=== PATIENT | female | born 1985 | race Caucasian/White ===

== ENCOUNTER 2018-03-26 06:09 | Day surgery (SDC) | payer OTHER ==
[2018-03-26] MEDS ORDERED: ENOXAPARIN SODIUM 40 MG/0.4 ML DISP.SYRIN SQ ONE (06:39)
[2018-03-26] MEDS ORDERED: SCOPOLAMINE HYDROBROMIDE 1.5MG/72HR PATCH TD ONE ×2 (06:39→08:48)
[2018-03-26] MEDS ORDERED: LACTATED RINGERS 1,000 ML IV ONE (06:40)
[2018-03-26] MEDS ORDERED: FAMOTIDINE 20 MG/2 ML VIAL ONE ×2 (06:40→08:48)
[2018-03-26 07:33] LABS: BASOPHILS % 0.4 (0.0-1.5); EOSINOPHILS % 3.2 % (0.0-6.8); MEAN CORPUSCULAR HEMOGLOBIN 25.9 pg (28.0-34.0); MONOCYTES % 6.2 % (0.0-11.0)
[2018-03-26 07:34] LABS: NEUTROPHILS # 3.5 # k/uL (1.4-7.7)
[2018-03-26 07:46] LABS: eGFR (Non-African) > 60
[2018-03-26] MEDS ORDERED: LIDOCAINE HCL 1% PF 300MG/30ML VIAL ONE (08:44)
[2018-03-26] MEDS ORDERED: BUPIV. HCL 0.25% (2.5MG/ML)/EPI. (1:200,000) PF 10 ML VIAL IM ONE (08:44)
[2018-03-26] MEDS ORDERED: DEXAMETHASONE SOD PHOS 4 MG/ML VIAL ONE (08:48)
[2018-03-26] MEDS ORDERED: PROPOFOL 200 MG/20 ML VIAL IV ONE (08:48)
[2018-03-26] MEDS ORDERED: ONDANSETRON HCL/PF 4 MG/ 2ML VIAL ONE (08:48)
[2018-03-26] MEDS ORDERED: DESFLURANE 240 ML LIQUID IH ONE (08:48)
[2018-03-26] MEDS ORDERED: diphenhydrAMINE HCL 50 MG/ML VIAL ONE (08:48)
[2018-03-26] MEDS ORDERED: ACETAMINOPHEN 1,000 MG/100 ML INJ IV ONE (08:48)
[2018-03-26] MEDS ORDERED: CLINDAMYCIN PHOSPHATE 900 MG/6 ML VIAL ONE (08:48)
[2018-03-26] MEDS ORDERED: LACTATED RINGERS 1,000 ML IV.SOLN IV ONE (08:48)
[2018-03-26] MEDS ORDERED: SUGAMMADEX SODIUM 200 MG/2 ML VIAL IV ONE (08:48)
[2018-03-26] MEDS ORDERED: KETOROLAC TROMETHAMINE 30 MG/1ML VIAL ONE (08:48)
[2018-03-26] MEDS ORDERED: LIDOCAINE HCL 2% PF 100MG/5ML VIAL IJ ONE (08:48)
[2018-03-26] MEDS ORDERED: ROCURONIUM BROMIDE 10 MG/ML 5ML VIAL ONE (08:48)
[2018-03-26] MEDS ORDERED: MIDAZOLAM HCL 2 MG/2 ML VIAL ONE (10:07)
[2018-03-26] MEDS ORDERED: fentaNYL CITRATE/PF 100 MCG/2 ML INJ. ONE (10:07)
[2018-03-26] MEDS ORDERED: PROMETHAZINE HCL 25 MG/ML VIAL ONE (10:23)
== END 2018-03-26 11:22 | disposition other institution (70) ==
LOC: OPSURG 06:09
PROVIDERS: ATTEND Surgery
DX: E66.01 Morbid (severe) obesity due to excess calories (principal); Z68.38 Body mass index [BMI] 38.0-38.9, adult; E11.9 Type 2 diabetes mellitus without complications; K21.9 Gastro-esophageal reflux disease without esophagitis; K44.9 Diaphragmatic hernia without obstruction or gangrene
CPT/HCPCS: 43235; 80053; 81025; 85025; J1100; J1200; J1650; J1885; J2001; J2250; J2405; J2550; J2704; J3010; 43775; A9270-GY; J7120

== ENCOUNTER 2018-03-26 11:23 | Inpatient (IN) | payer OTHER ==
[2018-03-26] MEDS ORDERED: LEVALBUTEROL HCL 1.25 MG/3 ML AMPUL.NEB NEB PRN (11:26)
[2018-03-26] MEDS ORDERED: MORPHINE SULFATE 10 MG/ML VIAL IVP PRN (11:26)
[2018-03-26] MEDS ORDERED: PROMETHAZINE HCL 25 MG in 0.9 % SODIUM CHLORIDE 50 ML IV PRN (11:26)
[2018-03-26 11:44] VITALS: BMI 40.2
--- NOTE | 2018-03-26 12:02 | History and Physical Report ---
History of Present Illnes - History of Present Illness Reason for Visit: S/P Gastric Sleeve History of Present Illness: Patient is a 33-year-old white female who has tried multiple diets and exercise programs with no success. She states that has had problem with her weight that started at a young age. Patient and surgeon decided to proceed with gastric sleeve procedure. She was cleared with cardiology with EF 65% and Normal MINNIE. Procedure went well with no complications- patient will be admitted and monitored s/p surgical intervention. - Past Medical History Cardiac: Other (No cardiac hx) Pulmonary: Asthma COMPONENT TECHNICIAN: Seizure (pseudo- not on any meds) Gastrointestinal: GERD (On Zantac & Prilosec) Hepatobiliary: Hep A/B/C (Hep C- treated) Psych: Anxiety Musculoskeletal: Chronic low back pain, Osteoarthritis Endocrine: Diabetes (On Novolog/Lantus), obesity Grav: 4 Para: 1 Ab: 3 - Past Surgical History Past Surgical History: Cholecystectomy, Other (biopsy from armpit- benign), Tubal Ligation, Other (eye surgery) - Past Family History Mother Family History: CAD, Hyperlipidemia, Hypertension Father Family History: CAD, Hypertension - Past Social History Smoke: 1 pack per day, Quit (2017) Alcohol: Rare Drugs: None Lives: With Family Domestic Violence: Negative - Health Maintenance Health Maintenance: Mammogram, Other (Hep C treatment) Influenza Vaccine: Patient Refused Pneumonia Vaccine: No Resuscitation Status: Resusciation Status Resuscitation Status Full Code - Unable to Obtain History Unable to Obtain: No Review of Systems - Review of Systems Constitutional: Weakness Eyes: negative: pain, vision change ENT: negative: Ear Pain, Nose Pain, Throat Pain Respiratory: negative: Cough, Shortness of Breath Cardiovascular: negative: Chest Pain, Light Headedness Gastrointestinal: Nausea, Abdominal Pain (S/p Gastric Sleeve). negative: Vomiting Genitourinary: negative: Dysuria Musculoskeletal: negative: Back Pain Skin: negative: Rash Neurological: Weakness. negative: Seizures - Medications/Allergies Allergies/Adverse Reactions: Allergies Allergy/AdvReac Type Severity Reaction Status Date / Time cephalexin [From Keflex] Allergy Verified 03/26/18 11:25 clarithromycin [From Biaxin] Allergy Verified 03/26/18 11:25 egg Allergy Verified 03/26/18 11:25 nitrofurantoin Allergy Verified 03/26/18 11:25 [From Macrobid] Penicillins Allergy Verified 03/26/18 11:25 dairy Allergy Uncoded 03/26/18 11:25 Current Inpatient Medications: Current Inpatient Medications Clindamycin Phosphate (Clindamycin-D5w 600 Mg/50 Ml) 600 mg IV Q8 [facility] Stop: 03/26/18 21:01 Enoxaparin Sodium (Lovenox) 40 mg SQ QD [facility] Stop: 04/10/18 11:59 Famotidine (Pepcid) 20 mg IVP BID [facility] Stop: 03/30/18 20:59 Promethazine HCl 25 mg/ Sodium (Chloride) 51 mls @ 600 mls/hr IV Q6 PRN PRN Reason: Nausea / Vomiting Stop: 03/30/18 11:25 Sodium Chloride (Normal Saline) 1,000 mls @ 150 mls/hr IV Q8H [facility] Ketorolac Tromethamine (Toradol) 30 mg IVP Q6 PRN PRN Reason: For Mild Pain Stop: 03/30/18 11:25 Levalbuterol HCl (Xopenex) 1.25 mg NEB Q4 PRN PRN Reason: SOA, Dyspnea, or Wheezing Stop: 03/30/18 11:25 Miscellaneous (Chem Sticks) 1 each MC Q6H [facility] Morphine Sulfate (Morphine Sulfate) 4 mg IVP Q4 PRN PRN Reason: Mod. Pain-if unable to take PO Ondansetron HCl (Zofran 4 Mg/2 Ml) 4 mg IVP Q6H PRN PRN Reason: Nausea / Vomiting Stop: 03/30/18 11:25 Exam - Exam Vital Signs: Vital Signs (72 hours) 03/26/18 03/26/18 11:25 11:27 Temperature 96.6 F L 96.6 F L Pulse Rate [ 102 H 102 H Left] Respiratory 16 16 Rate Blood Pressure 125/84 125/84 [Left Arm] O2 Sat by Pulse 96 96 Oximetry General: Alert, Oriented to Person, Oriented to Place, Oriented to Time, Cooperative, Mild distress, Morbidly Obese HEENT: Atraumatic, PERRLA, Mouth Mucous membr. moist/[place], Nose Mucous membr. moist/[place] Neck: Normal Range of Motion Carotids: no bruit Lungs: Clear to auscultation, Normal air movement, Speaks full Sentences Cardiovascular: Regular rate, Normal S1, Normal S2, No murmurs Abdomen: Soft, Decreased Bowel Sounds Integumentary: Warm, Dry, Pale, Other (incision dressings dry/intact x 5) Extremities: No edema, Normal pulses, No tenderness/swelling Neurological: Normal speech, Strength Equal Bilat, Sensation intact Psych/Mental Status: Mental status NL, Mood NL Assessment/Plan - Assessment/Plan (1) S/P gastric surgery Status: Acute Current Visit: Yes Assessment: LCTA, legs are without pain/tenderness, HRRR, incision site dressings are dry & intact x 5. Patient is experiencing some nausea- mild abdominal discomfort Plan: Plan is to have patient up and walking frequently, SCDs while in bed, and Lovenox to prevent DVTs, using IS frequently to prevent resp illness, PPI IV, IVF until patient can tolerate oral, will monitor incision sites for infection, will monitor VS, lungs, and bowel (2) Morbid (severe) obesity due to excess calories Status: Acute Current Visit: Yes Assessment: S/P gastric Sleeve (3) Type 2 diabetes mellitus Status: Acute Current Visit: Yes Qualifiers: Diabetes mellitus termite helper insulin use: unspecified penitentiary insulin use status Diabetes mellitus complication status: with hyperglycemia Qualified Code(s): E11.65 - Type 2 diabetes mellitus with hyperglycemia Assessment: Patient has no signs of hypo/hyperglycemia Plan: Will check blood sugars every 6 hours and monitor for sx's of hypo/hyperglycemia (4) Asthma Status: Acute Current Visit: Yes Qualifiers: Asthma severity: mild Asthma persistence: intermittent Asthma complication type: uncomplicated Qualified Code(s): J45.20 - Mild intermittent asthma, uncomplicated Assessment: Stable on home meds Plan: Will order HFN and patient may use Albuterol inhaler prn (5) Hepatitis C Status: Acute Current Visit: Yes Qualifiers: Viral hepatitis chronicity: unspecified Hepatic coma status: without hepatic coma Qualified Code(s): B19.20 - Unspecified viral hepatitis C without hepatic coma Assessment: Patient underwent treatment for Hep C (6) GERD (gastroesophageal reflux disease) Status: Acute Current Visit: Yes Qualifiers: Esophagitis presence: without esophagitis Qualified Code(s): K21.9 - Gastro-esophageal reflux disease without esophagitis Assessment: Stable with home meds Plan: Will give PPI IV (7) Pseudoseizures Status: Acute Current Visit: Yes Assessment: Will monitor patient- patient does not remember last seizure- usually she has shaking of the legs or arms- does not lose consciousness Plan: Will monitor patient (8) Arthritis Status: Acute Current Visit: Yes Assessment: stable on home meds Plan: Will monitor VTE Assessment - RISK FACTOR SCORE VTE RISK FACTOR SCORES: OBESITY, MAJOR SURGERY/ANESTHESIA TIME > 1 HOUR (Lovenox daily, frequent ambulation, SCDs while in bed)
[2018-03-26] MEDS ORDERED: ALBUTEROL 90MCG/PUFF INHALER IH PRN (12:21)
[2018-03-26] MEDS: 0.9 % SODIUM CHLORIDE 1,000 ML IV SCH ×2 (12:24→18:27)
[2018-03-26] MEDS ORDERED: KETOROLAC TROMETHAMINE 60 MG/2 ML VIAL ONE (14:36)
[2018-03-26] MEDS: KETOROLAC TROMETHAMINE 30 MG/1ML VIAL IVP PRN (14:39)
[2018-03-26] MEDS: HYDROcodone /APAP 10/325 1 EACH TABLET PO PRN (16:40)
[2018-03-26] MEDS: CLINDAMYCIN PHOSPHATE/D5W 600 MG/50 ML PIGGYBACK IV SCH ×2 (16:42→21:05)
[2018-03-26] MEDS: ONDANSETRON HCL/PF 4 MG/ 2ML VIAL IVP PRN (19:46)
[2018-03-26] MEDS: FAMOTIDINE 20 MG/2 ML VIAL IVP SCH (21:04)
[2018-03-27] MEDS ORDERED: MORPHINE SULFATE 5 MG/ML ML IV PRN (00:09)
[2018-03-27] MEDS: HYDROcodone /APAP 10/325 1 EACH TABLET PO PRN ×3 (00:09→16:43)
[2018-03-27] MEDS: 0.9 % SODIUM CHLORIDE 1,000 ML IV SCH ×4 (01:07→19:01)
--- NOTE | 2018-03-27 07:06 | Inpatient Progress Note ---
Subjective - Required Recertification Statement I anticipate X number of days because-include discharge plan: 1 Objective - Exam Vitals and I&O: Vital Signs Temp 97.9 F 03/27/18 06:00 Pulse 95 H 03/27/18 06:00 Resp 18 03/27/18 06:00 BP 140/84 03/27/18 06:00 Pulse Ox 94 03/27/18 06:00 Intake & Output 03/26/18 03/26/18 03/27/18 11:59 23:59 11:59 Intake Total 1800 1530 Output Total 1400 150 Balance 400 1380 Weight 99.79 kg Intake: IV 1500 1500 Right Forearm 1500 1500 Oral 300 30 Output: Urine 1400 150 Other: Voiding Method Toilet Toilet # Voids 1 General: Alert, Oriented to Person, Oriented to Place, Oriented to Time, Cooperative HEENT: Atraumatic Lungs: Clear to auscultation, Normal air movement, Speaks full Sentences Cardiovascular: Regular rate Abdomen: Normal bowel sounds, Soft, Other (Bandages C/D/I.) Assessment/Plan - Assessment/Plan (1) Asthma Status: Acute Current Visit: Yes Qualifiers: Asthma severity: mild Asthma persistence: intermittent Asthma complication type: uncomplicated Qualified Code(s): J45.20 - Mild intermittent asthma, uncomplicated Plan: STable. (2) S/P gastric surgery Status: Acute Current Visit: Yes Plan: Continue to advance diet, walk, IS (3) Type 2 diabetes mellitus Status: Acute Current Visit: Yes Qualifiers: Diabetes mellitus edge burnisher uppers insulin use: unspecified edge burnisher uppers insulin use status Diabetes mellitus complication status: with hyperglycemia Qualified Code(s): E11.65 - Type 2 diabetes mellitus with hyperglycemia Plan: Add SSI. BS down to 140 today. Watch closely.
[2018-03-27] MEDS ORDERED: 0.9 % SODIUM CHLORIDE 50 ML IV ONE (08:28)
[2018-03-27] MEDS: FAMOTIDINE 20 MG/2 ML VIAL IVP SCH ×2 (08:36→20:22)
[2018-03-27] MEDS: ONDANSETRON HCL/PF 4 MG/ 2ML VIAL IVP PRN (08:36)
[2018-03-27] MEDS: KETOROLAC TROMETHAMINE 30 MG/1ML VIAL IVP PRN (08:37)
[2018-03-27] MEDS: INSULIN LISPRO 100 UNIT/ML 3ML VIAL SQ SCH ×3 (12:44→21:04)
[2018-03-27] MEDS: ENOXAPARIN SODIUM 40 MG/0.4 ML DISP.SYRIN SQ SCH (12:45)
[2018-03-28] MEDS: 0.9 % SODIUM CHLORIDE 1,000 ML IV SCH ×3 (02:25→20:59)
[2018-03-28] MEDS: HYDROcodone /APAP 10/325 1 EACH TABLET PO PRN ×3 (04:22→13:52)
[2018-03-28] MEDS: INSULIN LISPRO 100 UNIT/ML 3ML VIAL SQ SCH ×3 (08:55→16:42)
--- NOTE | 2018-03-28 09:06 | Diagnostic Imaging Report ---
RYANN PUGA [address] [facility] [address] [id number] Report Submission Date: Mar 28, 2018 8:14:54 AM ORIENTOR Patient Study Name: AG SCHILLING I Date: Mar 28, 2018 7:51:04 AM ORIENTOR Modality Type: DX Gender: F Description: CHEST : 81 Institution: Physician: RYANN PUGA Examination: PA and lateral chest. History: Evaluate lung beltran. HYPOXIA (Hx) Comparison exam: None provided. Findings: PA and lateral views of the chest demonstrates a normal cardiac and mediastinal silhouette. Bibasilar linear infiltrates with blunting of the posterior sulci. Osseous structures are appropriate for age. Impression: Bibasilar infiltrates/effusions. Electronically signed on Mar 28, 2018 8:14:54 AM ORIENTOR by: Matias LEO
[2018-03-28 09:13] LABS: MEAN CORPUSCULAR HEMOGLOBIN 26.6 pg (28.0-34.0)
[2018-03-28 09:29] LABS: eGFR (Non-African) > 60
--- NOTE | 2018-03-28 09:31 | Inpatient Progress Note ---
Subjective - Required Recertification Statement I anticipate X number of days because-include discharge plan: 2 - Review of Systems Subjective: Patient worried about her decreased saturation when up walking. 85-88% while ambulating. Doesn't feel wheezy just a little SOB. Has asthma. Objective - Exam Vitals and I&O: Vital Signs Temp 99 F 03/28/18 08:00 Pulse 89 03/28/18 08:00 Resp 16 03/28/18 08:00 BP 113/71 03/28/18 08:00 Pulse Ox 93 03/28/18 08:00 Intake & Output 03/27/18 03/27/18 03/28/18 11:59 23:59 11:59 Intake Total 1530 410 270 Output Total 283 851 7141 Balance 1380 10 -780 Intake: IV 1500 Right Forearm 1500 Oral 30 410 270 Output: Urine 517 263 6323 Other: Voiding Method Toilet Toilet Toilet # Voids 2 1 # Bowel Movements 0 0 General: Alert, Oriented to Person, Oriented to Place, Oriented to Time, Cooperative HEENT: Atraumatic Lungs: Normal air movement, Speaks full Sentences, Rhonchi (RLL) Cardiovascular: Regular rate Abdomen: Normal bowel sounds, Soft - Results Results: Laboratory Results WBC 10.40 K/ul (4.00-12.00) 03/28/18 08:30 RBC 4.42 M/ul (3.90-5.20) 03/28/18 08:30 Hgb 11.8 g/dL (12.0-16.0) L 03/28/18 08:30 Hct 35.4 % (34.5-46.5) 03/28/18 08:30 MCV 80.0 fl (80.0-100.0) 03/28/18 08:30 MCH 26.6 pg (28.0-34.0) L 03/28/18 08:30 MCHC 33.2 g/dL (30.0-36.0) 03/28/18 08:30 RDW 13.6 % (11.3-14.3) 03/28/18 08:30 Plt Count 286 K/mm3 (130-400) 03/28/18 08:30 Sodium 141 mmol/L (136-145) 03/28/18 08:30 Potassium 3.3 mmol/L (3.5-5.1) L 03/28/18 08:30 Chloride 110 mmol/L (98-107) H 03/28/18 08:30 Carbon Dioxide 22 mmol/L (22-30) 03/28/18 08:30 BUN 6 mg/dL (7-17) L 03/28/18 08:30 Creatinine 0.60 mg/dL (0.52-1.04) 03/28/18 08:30 Estimated Creat Clear 242 03/28/18 08:30 Est GFR ( Amer) > 60 (60-) 03/28/18 08:30 Est GFR (Non-Af Amer) > 60 (60-) 03/28/18 08:30 Glucose 88 mg/dL (74-106) 03/28/18 08:30 Calcium 7.8 mg/dL (8.4-10.2) L 03/28/18 08:30 Total Bilirubin 0.6 mg/dL (0.2-1.3) 03/28/18 08:30 AST 21 U/L (15-46) 03/28/18 08:30 ALT 25 U/L (13-69) 03/28/18 08:30 Alkaline Phosphatase 68 U/L (38-126) 03/28/18 08:30 Total Protein 6.4 g/dL (6.3-8.2) 03/28/18 08:30 Albumin 3.7 g/dL (3.5-5.0) 03/28/18 08:30 Assessment/Plan - Assessment/Plan (1) Asthma Status: Acute Current Visit: Yes Qualifiers: Asthma severity: mild Asthma persistence: intermittent Asthma complication type: uncomplicated Qualified Code(s): J45.20 - Mild intermittent asthma, uncomplicated Plan: Will schedule xopenenx q6hr. Consider steroids. (2) S/P gastric surgery Status: Acute Current Visit: Yes Plan: CT for PE negative. Shows atelectasis. INstruct patient to do IS and walk frequently. (3) Type 2 diabetes mellitus Status: Acute Current Visit: Yes Qualifiers: Diabetes mellitus manager intermediate insulin use: unspecified senior living insulin use status Diabetes mellitus complication status: with hyperglycemia Qualified Code(s): E11.65 - Type 2 diabetes mellitus with hyperglycemia Plan: BS in .
[2018-03-28] MEDS: FAMOTIDINE 20 MG/2 ML VIAL IVP SCH ×2 (10:08→21:00)
[2018-03-28] MEDS: ENOXAPARIN SODIUM 40 MG/0.4 ML DISP.SYRIN SQ SCH (11:51)
[2018-03-28] MEDS ORDERED: POTASSIUM CHLORIDE 20 MEQ TABLET.ER PO ONE (12:19)
[2018-03-28] MEDS ORDERED: ACETAMINOPHEN ORAL SOLUTION 325 MG/10.15 ML CUP PO PRN (13:59)
--- NOTE | 2018-03-28 14:50 | Diagnostic Imaging Report ---
RYANN PUGA [facility] [address] [facility] [address] [address] Report Submission Date: Mar 28, 2018 2:23:46 PM ENGINEERING VICE PRESIDENT Patient Study Name: AG SCHILLING I Date: Mar 28, 2018 1:24:39 PM ENGINEERING VICE PRESIDENT Modality Type: CT\SR Gender: F Description: CT PE CHEST : 81 Institution: [facility] Physician: RYANN PUGA CT chest PE protocol History: Hypoxia Technique: Helically acquired images were obtained through the chest following IV contrast using a pulmonary embolism protocol. Findings: No filling defects are identified within the pulmonary arteries to suggest pulmonary embolism. Heart size is normal. There is no pericardial or pleural effusion. Areas of predominantly streaky parenchymal density are present at both lung bases consistent predominantly with atelectasis. The thoracic aorta is normal in caliber. Impression: No evidence for pulmonary embolism. Parenchymal patchy and relatively linear densities at both lung bases consistent predominantly with atelectasis. Electronically signed on Mar 28, 2018 2:23:46 PM ENGINEERING VICE PRESIDENT by: Asiya LEO
[2018-03-28] MEDS: LEVALBUTEROL HCL 1.25 MG/3 ML AMPUL.NEB NEB SCH (17:24)
[2018-03-28] MEDS ORDERED: ONDANSETRON HCL 4 MG TAB.RAPDIS PO PRN (20:24)
[2018-03-29] MEDS: INSULIN LISPRO 100 UNIT/ML 3ML VIAL SQ SCH ×3 (00:21→12:53)
[2018-03-29] MEDS: LEVALBUTEROL HCL 1.25 MG/3 ML AMPUL.NEB NEB SCH ×3 (01:45→12:53)
[2018-03-29] MEDS: 0.9 % SODIUM CHLORIDE 1,000 ML IV SCH ×2 (04:36→11:38)
[2018-03-29] MEDS: FAMOTIDINE 20 MG/2 ML VIAL IVP SCH (09:36)
--- NOTE | 2018-03-29 09:50 | Discharge Summary ---
Discharge Summary - Discharge Sumary History of Present Illness: Patient is a 33-year-old white female who has tried multiple diets and exercise programs with no success. She states that has had problem with her weight that started at a young age. Patient and surgeon decided to proceed with gastric sleeve procedure. She was cleared with cardiology with EF 65% and Normal MINNIE. Procedure went well with no complications- patient will be admitted and monitored s/p surgical intervention. Condition at Discharge: Stable Home Medications: Ambulatory Orders Medication Instructions Recorded Albuterol Sulfate [Proair HFA] 1 inh IH Q4 PRN 03/26/18 Lidocaine [Lidoderm] 1 patch TP DAILY 03/26/18 Omeprazole Magnesium [Prilosec] 40 mg PO BID 03/26/18 Hydrocodone/Acetaminophen 1 each PO Q4 PRN #50 tablet 03/29/18 [Hydrocodone-Acetamin 5-325 mg] Ranitidine HCl 300 mg PO DAILY PRN #0 03/29/18 Consultations this Visit: None Procedures this Visit: Other (gastric sleeve) Allergies/Adverse Reactions: Allergies Allergy/AdvReac Type Severity Reaction Status Date / Time cephalexin [From Keflex] Allergy Verified 03/26/18 11:25 clarithromycin [From Biaxin] Allergy Verified 03/26/18 11:25 egg Allergy Verified 03/26/18 11:25 nitrofurantoin Allergy Verified 03/26/18 11:25 [From Macrobid] Penicillins Allergy Verified 03/26/18 11:25 dairy Allergy Uncoded 03/26/18 11:25 Patient Problems: Current Active Problems Problem Status Onset Arthritis Acute Asthma Acute GERD (gastroesophageal reflux disease) Acute Hepatitis C Acute Morbid (severe) obesity due to excess calories Acute Pseudoseizures Acute S/P gastric surgery Acute Type 2 diabetes mellitus Acute Discharge Summary: Patient did well postoperativly. On the 2nd postop day she did desat into the mid 80's. CT scan of the lungs showed no PE or pneumonia. Just some atelectasis. Patient was encouraged to use IS frequently and encouraged to walk. Pain continued to complain of some pain associated with surgery but it has been gradually improving. At the time of discharged patient has been passing flatus but had not had a BM yet. States she usually goes several days before having a BM. Asthma remained stable during post op course with occasional use of nebulizer. Diabetes remained stable off of her home insulin with blood sugars running in the 80-100 range. No hypoglycemic episodes noted. Vital sign were stable at the time of discharge. Patient discharged home in stable condition.
[2018-03-29] MEDS: ENOXAPARIN SODIUM 40 MG/0.4 ML DISP.SYRIN SQ SCH (12:54)
[2018-03-29 13:25] VITALS: BP 124/75
[2018-03-30 16:17] LABS: eGFR (Non-African) > 60
== END 2018-03-29 16:37 | disposition home or self-care (01) | DRG 641 ==
LOC: SOUTH 11:23
PROVIDERS: ADMIT Nurse Practitioner Family; ATTEND Nurse Practitioner Family
DX: E66.01 Morbid (severe) obesity due to excess calories (principal); E11.65 Type 2 diabetes mellitus with hyperglycemia; R53.1 Weakness; J45.20 Mild intermittent asthma, uncomplicated; B19.20 Unspecified viral hepatitis C without hepatic coma; F44.5 Conversion disorder with seizures or convulsions; F17.210 Nicotine dependence, cigarettes, uncomplicated
CPT/HCPCS: 36415; 71046; 71275; 80048; 80053; 85027; 85379; 99231; 99232; 99238; J1650; J1885; J2270; J2405; J2550; J7614; A9270; J7030; Q9967; S1016